=== PATIENT | male | born 1970 | race Caucasian/White ===

== ENCOUNTER 2017-08-12 14:29 | Outpatient (CLI) | payer MEDICARE, MEDICAID ==
--- NOTE | 2017-08-12 15:45 | ULT ---
ULTRASOUND RENAL BILATERAL STANDARD: History Injury. COMPARISON: None. FINDINGS: The right kidney measures 9 x 4.6 x 4.5 cm. The left kidney measures 9 x 5.2 x 5.1 cm. No mass, hyd ronephrosis, or abnormal calcifications. Urinary bladder wall is not as thick as on prior examinatio n, although is has increased volume of urine. The prevoid urinary bladder volume is 102 mL. IMPRESSION: No evidence of obstructive uropathy. POS: RUPA
== END 2017-08-12 14:30 | disposition home or self-care (01) ==
LOC: ULT 14:29
PROVIDERS: ATTEND Urology
DX: S24.101A Unspecified injury at T1 level of thoracic spinal cord, initial encounter (principal)
CPT/HCPCS: 76770

== ENCOUNTER 2018-09-14 23:33 | Emergency (ER) | payer MEDICARE, MEDICAID ==
[2018-09-15] MEDS ORDERED: Fleet Enema 133 ML BOT FS SCH (01:15)
[2018-09-15] MEDS ORDERED: Fleet Enema 133 ML BOT PR SCH (01:15)
== END 2018-09-15 02:15 | disposition home or self-care (01) ==
LOC: ERS 23:33
DX: K59.00 Constipation, unspecified (principal); Z79.899 Other long term (current) drug therapy
CPT/HCPCS: 99283

== ENCOUNTER 2021-10-02 14:17 | Emergency (ER) | payer OTHER, MEDICAID ==
[2021-10-02 14:55] LABS: #Basophils 0.1 thou/uL (0.0-0.2); #Eosinphils 0.2 thou/uL (0.0-0.7); #Lymphocytes 1.6 thou/uL (1.20-3.40); #Monocytes 0.5 thou/uL (0.11-0.59); %Basophils 0.9 % (0.0-1.0); %Eosinophils 3.1 % (0.0-10.0); %Lymphocytes 25.3 % (21.0-51.0); %Monocytes 8.3 % (0.0-10.0); %Neutrophils 62.4 % (42.0-75.0); Hemoglobin 12.7 g/dL (14.0-18.0); Mean Corpuscular HGB CONC 32.8 g/dL (32.0-36.0); Mean Corpuscular Hemoglobin 32.2 pg (27.0-31.0); Mean Corpuscular Volume 98.2 fL (78.0-98.0); Mean Platelet Volume 6.7 fL (7.4-10.4); Platelet Count 260 thou/uL (130-400); RBC Distribution Width 12.2 % (11.5-14.5); Red Blood Cell (RBC) Count 3.94 mill/uL (4.70-6.10); White Blood Cell (WBC) Count 6.4 thou/uL (4.8-10.8)
[2021-10-02 15:20] LABS: ALT (SGPT) 10 U/L (8-55); AST (SGOT) 15 U/L (5-34); Albumin 3.8 g/dL (3.5-5.0); Alkaline Phosphatase 66 U/L (40-110); Anion Gap 10 mmol/L (10-20); BUN (Urea Nitrogen) 10 mg/dL (8.4-25.7); Bilirubin, Total 0.4 mg/dL (0.2-1.2); Calc. Creatinine Clearance 0 mL/min (70-130); Calcium 8.9 mg/dL (7.8-10.44); Carbon Dioxide 27 mmol/L (22-29); Chloride 106 mmol/L (98-107); Globulin 2.6 g/dL (2.4-3.5); Glucose 110 mg/dL (70-105); Potassium 4.3 mmol/L (3.5-5.1); Protein, Total 6.4 g/dL (6.0-8.3); Sodium 139 mmol/L (136-145)
== END 2021-10-02 18:35 | disposition home or self-care (01) ==
LOC: ERS 14:17
DX: L98.8 Other specified disorders of the skin and subcutaneous tissue (principal)
CPT/HCPCS: 36415; 76999; 80053; 83605; 85025

== ENCOUNTER 2021-10-13 13:27 | Inpatient (IN) | payer MEDICARE, MEDICAID ==
[~2021-10-13 13:27] MED LIST: Iopamidol 370 76% 100 ML VIAL ONE
[2021-10-13] MEDS ORDERED: Ondansetron PF 4 MG/2 ML Vial ONE (14:26)
[2021-10-13] MEDS ORDERED: Ketorolac Tromethamine 30 MG/ML VIAL ONE (14:26)
[2021-10-13] MEDS ORDERED: Cefepime 2 GM VIAL ONE (14:27)
[2021-10-13 14:29] LABS: #Basophils 0.1 thou/uL (0.0-0.2); #Eosinphils 0.3 thou/uL (0.0-0.7); #Monocytes 0.8 thou/uL (0.11-0.59); #Neutrophils 5.5 thou/uL (1.40-6.50); %Basophils 0.8 % (0.0-1.0); %Eosinophils 3.3 % (0.0-10.0); %Lymphocytes 22.6 % (21.0-51.0); %Monocytes 9.7 % (0.0-10.0); %Neutrophils 63.7 % (42.0-75.0); Hemoglobin 13.6 g/dL (14.0-18.0); Mean Corpuscular HGB CONC 32.7 g/dL (32.0-36.0); Mean Corpuscular Hemoglobin 32.2 pg (27.0-31.0); Mean Corpuscular Volume 98.4 fL (78.0-98.0); Mean Platelet Volume 6.5 fL (7.4-10.4); Platelet Count 278 thou/uL (130-400); RBC Distribution Width 12.1 % (11.5-14.5); Red Blood Cell (RBC) Count 4.22 mill/uL (4.70-6.10); White Blood Cell (WBC) Count 8.6 thou/uL (4.8-10.8)
[2021-10-13 14:51] LABS: ALT (SGPT) 11 U/L (8-55); AST (SGOT) 27 U/L (5-34); Albumin 4.1 g/dL (3.5-5.0); Alkaline Phosphatase 61 U/L (40-110); Anion Gap 13 mmol/L (10-20); BUN (Urea Nitrogen) 10 mg/dL (8.4-25.7); Bilirubin, Total 0.5 mg/dL (0.2-1.2); Calc. Creatinine Clearance 0 mL/min (70-130); Calcium 8.9 mg/dL (7.8-10.44); Carbon Dioxide 29 mmol/L (22-29); Chloride 102 mmol/L (98-107); Globulin 2.5 g/dL (2.4-3.5); Glucose 89 mg/dL (70-105); Potassium 4.2 mmol/L (3.5-5.1); Protein, Total 6.6 g/dL (6.0-8.3); Sodium 140 mmol/L (136-145)
[2021-10-13] MEDS ORDERED: Vancomycin 1.5 GRAM/300 ML BAG 1.5 GM in Premix Bag 1 BAG IVPB SCH (16:00)
[2021-10-13] MEDS ORDERED: Lidocaine 1% (PF) 30 ML VIAL ONE ×2 (16:12→16:18)
[2021-10-13 17:31] LABS: SARS-CoV-2 NAA Rapid Test Not Detected (NotDetected)
[2021-10-13] MEDS ORDERED: Acetaminophen 325 MG TAB PO PRN (18:11)
[2021-10-13] MEDS ORDERED: Ondansetron PF 4 MG/2 ML Vial IVP PRN (18:11)
[2021-10-13] MEDS ORDERED: Bisacodyl 5 MG TAB PO PRN (18:11)
[2021-10-13] MEDS ORDERED: Calcium Carbonate 500 MG ChewTAB PO PRN (18:11)
[2021-10-13] MEDS ORDERED: HYDROcodone/Acetaminophen 5/325 mg Tablet PO PRN (18:11)
[2021-10-13] MEDS ORDERED: Ondansetron ODT 4 MG TAB PO PRN (18:11)
[2021-10-13] MEDS ORDERED: Senokot S 8.6-50 MG TAB PO PRN (18:11)
[2021-10-13 19:23] VITALS: BMI 20.2
[2021-10-13] MEDS ORDERED: Sodium Chloride 0.9% 1,000 ML IV SCH (19:30)
[2021-10-13 21:10] LABS: Hemoglobin A1c 5.5 % (4.0-6.0)
[2021-10-13] MEDS: Baclofen 10 MG TAB PO SCH (22:12)
[2021-10-13] MEDS: Senokot S 8.6-50 MG TAB PO SCH (22:55)
[2021-10-14] MEDS: Cefepime 2 GM in Sodium Chloride 0.9% 100 ML IVPB SCH ×3 (02:01→12:56)
[2021-10-14] MEDS: Vancomycin 1 GM in Premix Bag 1 BAG IVPB SCH ×2 (04:01→17:00)
[2021-10-14 06:05] LABS: #Eosinphils 0.4 thou/uL (0.0-0.7); #Lymphocytes 1.7 thou/uL (1.20-3.40); #Monocytes 0.8 thou/uL (0.11-0.59); #Neutrophils 4.5 thou/uL (1.40-6.50); %Basophils 0.6 % (0.0-1.0); %Eosinophils 5.1 % (0.0-10.0); %Lymphocytes 23.5 % (21.0-51.0); %Monocytes 10.4 % (0.0-10.0); %Neutrophils 60.5 % (42.0-75.0); Mean Corpuscular HGB CONC 33.9 g/dL (32.0-36.0); Mean Corpuscular Hemoglobin 33.3 pg (27.0-31.0); Mean Corpuscular Volume 98.3 fL (78.0-98.0); Mean Platelet Volume 6.7 fL (7.4-10.4); Platelet Count 221 thou/uL (130-400); RBC Distribution Width 12.1 % (11.5-14.5); Red Blood Cell (RBC) Count 3.59 mill/uL (4.70-6.10); White Blood Cell (WBC) Count 7.4 thou/uL (4.8-10.8)
[2021-10-14 06:16] LABS: Prothrombin Time 13.6 sec (12.0-14.7)
[2021-10-14 06:17] LABS: PTT 35.8 sec (22.9-36.1)
[2021-10-14 06:32] LABS: Anion Gap 9 mmol/L (10-20); BUN (Urea Nitrogen) 11 mg/dL (8.4-25.7); Calc. Creatinine Clearance 82 mL/min (70-130); Calcium 8.1 mg/dL (7.8-10.44); Carbon Dioxide 28 mmol/L (22-29); Cardiac Risk 4.5 (Less than 4.5); Chloride 105 mmol/L (98-107); Cholesterol 148 mg/dl (< 200 Desired); Glucose 102 mg/dL (70-105); HDL Cholesterol 33 mg/dL (>60 Neg Risk); LDL Cholesterol, Calculated 103 mg/dL; Magnesium 1.9 mg/dL (1.6-2.6); Potassium 4.1 mmol/L (3.5-5.1); Sodium 138 mmol/L (136-145); Triglycerides 58 mg/dL (Less than 150)
[2021-10-14 06:39] LABS: ALT (SGPT) 9 U/L (8-55); AST (SGOT) 16 U/L (5-34); Albumin 3.3 g/dL (3.5-5.0); Alkaline Phosphatase 51 U/L (40-110); Bilirubin, Direct 0.2 mg/dL (0.1-0.3); Bilirubin, Total 0.6 mg/dL (0.2-1.2); Protein, Total 5.5 g/dL (6.0-8.3)
[2021-10-14] MEDS ORDERED: Lidocaine 5% Patch TD SCH ×2 (09:00→21:00)
[2021-10-14] MEDS: Baclofen 10 MG TAB PO SCH ×4 (09:25→21:03)
[2021-10-14] MEDS: Oxybutynin 5 MG TAB PO SCH ×3 (09:25→21:03)
[2021-10-14] MEDS: Polyethylene Glycol 3350 17 GM Packet PO SCH (12:53)
[2021-10-14] MEDS: Senokot S 8.6-50 MG TAB PO SCH ×2 (12:54→21:03)
[2021-10-14] MEDS ORDERED: Lidocaine Patch Removal TOP SCH (21:00)
[2021-10-15 02:21] LABS: #Basophils 0.1 thou/uL (0.0-0.2); #Eosinphils 0.5 thou/uL (0.0-0.7); #Monocytes 0.9 thou/uL (0.11-0.59); #Neutrophils 4.1 thou/uL (1.40-6.50); %Basophils 0.7 % (0.0-1.0); %Eosinophils 6.2 % (0.0-10.0); %Lymphocytes 26.3 % (21.0-51.0); %Monocytes 11.9 % (0.0-10.0); %Neutrophils 54.9 % (42.0-75.0); Hemoglobin 12.7 g/dL (14.0-18.0); Mean Corpuscular HGB CONC 33.8 g/dL (32.0-36.0); Mean Corpuscular Hemoglobin 33.2 pg (27.0-31.0); Mean Corpuscular Volume 98.1 fL (78.0-98.0); Mean Platelet Volume 6.7 fL (7.4-10.4); Platelet Count 212 thou/uL (130-400); RBC Distribution Width 11.8 % (11.5-14.5); Red Blood Cell (RBC) Count 3.81 mill/uL (4.70-6.10); White Blood Cell (WBC) Count 7.4 thou/uL (4.8-10.8)
[2021-10-15 02:46] LABS: Vancomycin, Trough 20.9 ug/mL
[2021-10-15 02:49] LABS: Anion Gap 12 mmol/L (10-20); BUN (Urea Nitrogen) 10 mg/dL (8.4-25.7); Calc. Creatinine Clearance 91 mL/min (70-130); Calcium 8.3 mg/dL (7.8-10.44); Carbon Dioxide 25 mmol/L (22-29); Chloride 104 mmol/L (98-107); Glucose 86 mg/dL (70-105); Magnesium 1.9 mg/dL (1.6-2.6); Potassium 3.6 mmol/L (3.5-5.1); Sodium 137 mmol/L (136-145)
[2021-10-15] MEDS: Vancomycin HCl 750 MG in Sodium Chloride 0.9% 250 ML 250 ML IVPB SCH ×2 (04:56→16:46)
[2021-10-15 08:41] VITALS: BP 123/68
[2021-10-15] MEDS ORDERED: Lidocaine Patch Removal TOP SCH (09:00)
[2021-10-15] MEDS: Oxybutynin 5 MG TAB PO SCH (09:53)
[2021-10-15] MEDS: Baclofen 10 MG TAB PO SCH ×2 (09:54→13:52)
[2021-10-15] MEDS: Senokot S 8.6-50 MG TAB PO SCH (10:39)
[2021-10-15] MEDS: Polyethylene Glycol 3350 17 GM Packet PO SCH (10:39)
[2021-10-15] MEDS ORDERED: oxyCODONE 5 MG TAB PO PRN (10:40)
[2021-10-15] MEDS ORDERED: Lidocaine 1% PF 5 ML VIAL ONE (11:26)
[2021-10-15] MEDS: Cefepime 2 GM in Sodium Chloride 0.9% 100 ML IVPB SCH (13:53)
[2021-10-15 16:57] VITALS: TEMP 97.8
== END 2021-10-15 17:50 | disposition left against medical advice (07) | DRG 603 ==
LOC: ERS 13:27 → SURG B 16:59 → OBSVTOIN 10-14 18:26
PROVIDERS: ADMIT Internal Medicine; ATTEND Internal Medicine
PROC: 0K9N3ZZ Drainage of Right Hip Muscle, Percutaneous Approach (ICD-10-PCS; principal; 2021-10-15)
DX: L02.31 Cutaneous abscess of buttock (principal); G82.20 Paraplegia, unspecified; Z20.822 Contact with and (suspected) exposure to COVID-19; N18.2 Chronic kidney disease, stage 2 (mild); N31.9 Neuromuscular dysfunction of bladder, unspecified; F12.10 Cannabis abuse, uncomplicated; Z79.899 Other long term (current) drug therapy
CPT/HCPCS: 36415; 74177; 76942; 80048; 80053; 80061; 80076; 80202; 83036; 83605; 83735; 84443; 85025; 85610; 85730; 86140; 87040; 87081; 88173; 88305; 94760; 96365; 96367; 96375; 96376; G0378; J0692; J1885; J2001; J2405; J3370; J3490; J7050; Q9967; U0002